=== PATIENT | male | born 1975 | race Caucasian/White ===

== ENCOUNTER → 2017-05-19 | Outpatient (CLI) | payer OTHER ==
--- NOTE | 2017-05-19 10:23 | CARD ---
APPROVED REPORT EXAM: Two-dimensional and M-mode echocardiogram with Doppler and color Doppler. Other Information Quality : Good INDICATION Murmur DX BICUSPID AORTIC VALVE 2D DIMENSIONS Left Atrium(2D)3.4 (1.6-4.0cm)IVSd1.3 (0.7-1.1cm) Aortic Root(2D)3.3 (2.0-3.7cm)LVDd6.5 (3.9-5.9cm) LVOT Diameter2.5 (1.8-2.4cm)PWd1.3 (0.7-1.1cm) LVDs4.4 (2.5-4.0cm)FS (%) 32.1 % SV127.5 mlLVEF(%)59.0 (>50%) Aortic Valve AoV Peak Chuy.147.4cm/sAoV VTI36.2cm AO Peak GR.8.7mmHgLVOT Peak Chuy.94.6cm/s AO Mean GR.5mmHgAVA (VMAX)3.11cm2 JOSHUA (VTI)3.20cm2 Mitral Valve MV E Pjjxnwvy10.4cm/sMV DECEL [id number] MV A Qjrtbilb82.3cm/sE/A Ratio1.5 Tricuspid Valve TR P. Nqrpkaya105ko/sRAP KTTLNRQK5nmZc TR Peak Gr.[id number] Pulmonary Vein S1 Oxsdeuyv11.4cm/sD2 Cscrqtyo50.3cm/s LEFT VENTRICLE The left ventricle is normal size. There is mild concentric left ventricular hypertrophy. Left ventri preet systolic function is normal. The Ejection Fraction is 55-60%. There is normal LV segmental wall m otion. RIGHT VENTRICLE The right ventricle is normal size. The right ventricular systolic function is normal. ATRIA The left atrium size is normal. The right atrium size is normal. The interatrial septum is intact wit h no evidence for an atrial septal defect or patent foramen ovale as noted on 2-D or Doppler imaging. AORTIC VALVE The aortic valve is bicuspid. Doppler and Color Flow revealed mild to moderate aortic regurgitation w ith eccentric jet. There is no significant aortic valvular stenosis. There is no aortic valvular vege tation. MITRAL VALVE The mitral valve is normal in structure and function. There is no evidence of mitral valve prolapse. There is no mitral valve stenosis. Doppler and Color Flow revealed no mitral valve regurgitation note d. TRICUSPID VALVE The tricuspid valve is normal in structure. Doppler and Color Flow revealed trace tricuspid regurgita tion. There is no pulmonary hypertension. The PA pressure was estimated at 19 mmHg. There is no tricu spid valve prolapse or vegetation. There is no tricuspid valve stenosis. PULMONIC VALVE The pulmonary valve is normal in structure and function. Doppler and Color Flow revealed no pulmonic valvular regurgitation. There is no pulmonic valvular stenosis. GREAT VESSELS The aortic root appears enlarged. The ascending aorta is normal in size. The IVC is normal in size an d collapses >50% with inspiration. PERICARDIAL EFFUSION There is no pleural effusion. There is no evidence of significant pericardial effusion. Critical Notification Critical Value: No <Conclusion> Left ventricle systolic function is normal. The Ejection Fraction is 55-60%. There is normal LV segmental wall motion. The aortic valve is bicuspid. Mild to moderate aortic regurgitation with eccentric jet. Recommend TERESA for more definitive evaluation of severity. Trace tricuspid regurgitation. The PA pressure was estimated at 19 mmHg. There is no evidence of significant pericardial effusion.
== END | disposition home or self-care (01) ==
LOC: ECHO 08:01
PROVIDERS: ATTEND Internal Medicine Cardiovascular Disease
DX: I08.2 Rheumatic disorders of both aortic and tricuspid valves (principal)
CPT/HCPCS: 93306